=== PATIENT | female | born 1975 | race Caucasian/White ===

== ENCOUNTER → 2016-05-08 16:50 | Outpatient (CLI) | payer MEDICAID ==
[2015-01-29 09:22] VITALS: BMI 32.5
[~2016-05-08 16:50] MED LIST: HYDROCODONE-APA1 TAB PO; ULTRAM50 MG PO
== END | disposition home or self-care (01) ==
LOC: D.MAMMO 09:15
DX: Z12.31 Encounter for screening mammogram for malignant neoplasm of breast (principal)

== ENCOUNTER → 2016-06-15 16:28 | Outpatient (CLI) | payer MEDICAID ==
[2015-01-29 09:22] VITALS: BMI 32.5
== END | disposition home or self-care (01) ==
LOC: D.MAMMO 09:00
DX: R92.8 Other abnormal and inconclusive findings on diagnostic imaging of breast (principal)

== ENCOUNTER 2018-07-29 08:00 | Outpatient (CLI) | payer MEDICAID ==
[2015-01-29 09:22] VITALS: BMI 32.5
== END 2018-07-29 23:59 | disposition home or self-care (01) ==
LOC: D.MAMMO 08:00
PROVIDERS: ATTEND Family Medicine
DX: Z12.31 Encounter for screening mammogram for malignant neoplasm of breast (principal)

== ENCOUNTER 2018-09-02 11:37 | Emergency (ER) | payer MEDICAID ==
[~2018-09-02] VITALS: Ht 165.1 cm; Wt 86.4 kg
[2018-09-02 11:59] VITALS: Ht 165.1 cm; Wt 86.4 kg
[2018-09-02] MEDS ORDERED: MULTI-DAY VITAM1 TAB PO (12:02)
[2018-09-02] MEDS ORDERED: MUSCLE RELAXANT (12:02)
[2018-09-02] MEDS ORDERED: PREDNISONE10 MG PO (15:33)
[2018-09-02] MEDS ORDERED: IBUPROFEN800 MG PO (15:33)
[2018-09-02] MEDS ORDERED: VALIUM SYR10 MG/2 ML IV (15:33)
[2018-09-02 15:55] VITALS: BP 134/81
== END 2018-09-02 15:55 | disposition home or self-care (01) ==
LOC: D.ER 11:37
DX: M54.6 Pain in thoracic spine (principal); M25.512 Pain in left shoulder; S46.812A Strain of other muscles, fascia and tendons at shoulder and upper arm level, left arm, initial encounter; X58.XXXA Exposure to other specified factors, initial encounter; Y93.89 Activity, other specified; Y92.89 Other specified places as the place of occurrence of the external cause

== ENCOUNTER → 2019-09-22 18:54 | Outpatient (CLI) | payer MEDICAID ==
[2018-09-02 11:59] VITALS: BMI 31.6
[~2019-09-22 18:54] MED LIST changes: +IBUPROFEN800 MG PO; +MULTI-DAY VITAM1 TAB PO; +MUSCLE RELAXANT; +PREDNISONE10 MG PO; +VALIUM SYR10 MG/2 ML IV
== END | disposition home or self-care (01) ==
LOC: D.MAMMO 10:45
PROVIDERS: ATTEND Family Medicine
DX: Z12.31 Encounter for screening mammogram for malignant neoplasm of breast (principal)

== ENCOUNTER → 2019-10-06 09:36 | Outpatient (CLI) | payer MEDICAID ==
[2018-09-02 11:59] VITALS: BMI 31.6
== END | disposition home or self-care (01) ==
LOC: D.US 09:36
PROVIDERS: ATTEND Family Medicine
DX: R92.8 Other abnormal and inconclusive findings on diagnostic imaging of breast (principal)

== ENCOUNTER 2019-11-03 05:40 | Day surgery (SDC) | payer MEDICAID ==
[2019-10-31 13:36] LABS: HEMATOCRIT 40.7 % (36.0-48.0); HEMOGLOBIN 14.1 g/dL (12-16); MCH 30.7 pg (26.0-34.0); MCHC 34.6 g/dL (31.0-37.0); MCV 88.7 fL (80.0-100.0); MEAN PLATELET VOLUME 9.3 fL (7.4-10.4); RBC 4.59 10x6/uL (4.00-5.40); RDW 12.5 % (11.5-14.5); WBC 8.7 10x3/uL (4.8-10.8)
[~2019-11-03] VITALS: Ht 165.1 cm; Wt 85.3 kg
[~2019-11-03 05:40] MED LIST changes: +ZYRTEC10 MG PO
[2019-11-03 06:20] VITALS: BP 128/78; Ht 165.1 cm; Wt 85.3 kg
[2019-11-03 06:25] LABS: HCG URINE NEGATIVE (NEGATIVE)
--- NOTE | 2019-11-03 09:21 | NUR ---
DC INSTRUCTIONS GIVEN TO PT. STATES UNDERSTANDING. DC'D IV CATH FULLY INTACT. WILL DC SHORTLY
--- NOTE | 2019-11-03 09:28 | NUR ---
PT LEFT UNIT VIA WC AT 4725
--- NOTE | 2019-11-11 15:53 | OP ---
PATIENT NAME: KASEY DICKEY MEDICAL RECORD: [id number] :77 LOCATION:[facility] ADMISSION DATE: SURGEON: AUGUSTUS SHAHID MD DATE OF OPERATION: 11/03/2019 PREOPERATIVE DIAGNOSIS: Retracted intrauterine device strings. POSTOPERATIVE DIAGNOSES: 1. Inverted intrauterine device with retracted intrauterine device strings. 2. Grossly normal-appearing external genitalia and endometrial canal. PROCEDURES: Hysteroscopy and removal of IUD and IUD placement. SURGEON: Augustus Shahid MD ANESTHESIA: General endotracheal. INTRAVENOUS FLUIDS: Per anesthesia record. HYSTEROSCOPIC FLUID LOSS: Less than 10 cc. FINDINGS: 1. Grossly normal-appearing external genitalia, vagina and cervix. 2. Inverted IUD with retracted strings. 3. Grossly normal-appearing endometrial canal. SPECIMENS: Previous IUD. COMPLICATIONS: None apparent. PROCEDURE IN DETAIL: The patient was taken to the operating room where general anesthesia was achieved without any difficulty. The patient was then prepped and draped in normal sterile fashion in the dorsal lithotomy position in the [facility]. At this point, the bladder was drained of approximately 50 cc of clear yellow urine. Graves speculum was placed in the vagina and the cervix was grasped on its anterior lip with a single tooth tenaculum. The 3-mm hysteroscope was then used to enter the cervical canal without dilation prior to approximately 4 cm into the cervix. The top of the IUD was noted in the lower uterine segment in an inverted position. The IUD string was then grasped with hysteroscopic grasper and the hysteroscope was removed with the IUD intact. The hysteroscope was then reintroduced into the uterus and survey of the endometrial canal was noted. The patient was sounded to approximately 9 cm. At this point, a new Amberly IUD was then set to a depth of 9 cm and deployed into the uterus without resistance or difficulty. The IUD strings were trimmed to approximately 2 cm. The tenaculum was then removed. The patient tolerated the procedure well, transported to postanesthesia recovery stable without incident. 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
== END 2019-11-03 09:23 | disposition home or self-care (01) ==
LOC: D.OPS 05:40 → D.PAN 07:30 → D.OPS 09:23
PROVIDERS: Anesthesiology; ATTEND Obstetrics & Gynecology
DX: Z97.5 Presence of (intrauterine) contraceptive device (principal)